=== PATIENT | male | born 1965 | race Caucasian/White ===

== ENCOUNTER 2023-12-22 13:06 | Outpatient (REF) | payer SELFPAY | END 2023-12-22 13:07 | disposition home or self-care (01) | LOC: CF 13:06 | DX: Z13.89 Encounter for screening for other disorder (principal) ==

== ENCOUNTER 2023-12-25 11:08 | Outpatient (REF) | payer MEDICARE, MEDICAID, SELFPAY ==
--- NOTE | ~2023-12-25 | XR_ITS ---
EXAMINATION: XR CERVICAL SPINE CLINICAL INFORMATION: Cervical disc disorder. COMPARISON: MRI dated 09/29/2023 TECHNIQUE: AP and lateral views of the cervical spine with flexion, extension, neutral position lateral images (4 views). FINDINGS: Vertebral body heights are normal. No fracture or malalignment. No significant pathologic motion with flexion and extension. Mild degenerative disc disease is characterized by loss of ventricular disc height and endplate osteophytes, most notably at C5-C6 and C6-C7. There is facet arthropathy on the right at C5-C6. Prevertebral soft tissues are unremarkable. Maxilla and mandible are edentulous. XR/XR cervical spine 4V IMPRESSION: Mild multilevel degenerative disc disease in the cervical spine, most notably at C5-C6 and C6-C7. No appreciable pathologic motion with flexion-extension.
== END 2023-12-25 11:09 | disposition home or self-care (01) ==
LOC: HO.HOSX 11:08
PROVIDERS: Visit Provider Physician Assistant
DX: M50.90 Cervical disc disorder, unspecified, unspecified cervical region (principal)
CPT/HCPCS: 72050; 99202

== ENCOUNTER 2023-12-25 11:08 | Outpatient (AMB) | payer MEDICARE, MEDICAID, SELFPAY ==
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
== END 2023-12-25 12:19 | disposition home or self-care (01) ==
PROVIDERS: Referring Provider Family Medicine; Visit Provider Physician Assistant
DX: M50.90 Cervical disc disorder, unspecified, unspecified cervical region (principal)
CPT/HCPCS: 99204